=== PATIENT | male | born 1995 | race Caucasian/White ===

== ENCOUNTER → 2018-07-27 | Outpatient (CLI) | payer OTHER ==
[~2018-07-27] MED LIST: ESCI20TA38 PO
--- NOTE | 2018-07-27 17:07 | RADIOLOGY IMAGING REPORT ---
FACILITY: [facility] PATIENT NAME: Te Hall : 1995 MR: [id number] V: [id number] EXAM DATE: ORDERING PHYSICIAN: EH AVILES TECHNOLOGIST: [facility] Patient: Te Hall : 1995 Visit/Account:[id number] Date of Sevice: 07/27/2018 Exam type: EXTREMITY NON-VASCULAR RIGHT History: Lump in right thigh. Comparison: Findings: The posterior medial aspect of the right thigh was imaged which is documented as the area of interest no sonographic abnormality was demonstrated on provided images. IMPRESSION: 1. No sonographic abnormality along the posterior medial upper right thigh was demonstrated. If thi s remains of strong clinical concern an MRI is recommended Report Dictated By: Jagruti Sage MD at 07/27/2018 4:57 PM Report E-Signed By: Jagruti Sage MD at 07/27/2018 4:59 PM WSN:[email or web address]
== END ==
LOC: US 07-24 14:44
PROVIDERS: ATTEND Nurse Practitioner Family
DX: R22.41 Localized swelling, mass and lump, right lower limb (principal)